=== PATIENT | male | born 1970 | race Caucasian/White ===

== ENCOUNTER 2019-01-04 19:11 | Emergency (ER) | payer BC ==
[2019-01-04 20:15] VITALS: BP 150/88
--- NOTE | 2019-01-04 20:29 | ED ---
Respiratory - HPI Summary HPI Summary: hx. of cough since august, over the last two days has had fever, denies signficant dyspnea or pleuritic pain . with this has had some body aches. hx. of prednisone use for polymyalgia rheumatica. hx. of snoring loudly never evaluated for sleep apnea - History of Current Complaint Chief Complaint: UCRespiratory Stated Complaint: COUGH,HEADACHE,FEVER Time Seen by Provider: 01/04/19 20:15 Hx Obtained From: Patient Onset/Duration: Gradual Onset, Lasting Weeks Timing: Constant Initial Severity: Mild Current Severity: Moderate Pain Intensity: 0 Character: Cough (Nonproductive) Sputum Amount: None Sputum Color: Clear Aggravating Factor(s): Nothing Alleviating Factor(s): Nothing Associated Signs and Symptoms: Negative - Risk Factors Status Asthmaticus Risk Factors: Recent Steroids Pulmonary Embolism Risk Factors: Negative Cardiac Risk Factors: Negative Pseudomonas Risk Factors: Negative - Allergy/Home Medications Allergies/Adverse Reactions: Allergies Allergy/AdvReac Type Severity Reaction Status Date / Time No Known Allergies Allergy Verified 01/04/19 20:11 Home Medications: Home Medications Omeprazole 40 mg BEDTIME 01/04/19 [History Confirmed 01/04/19] predniSONE TAB* [Deltasone 10 MG TAB*] 1 tab DAILY 01/04/19 [History Confirmed 01/04/19] PMH/Surg Hx/FS Hx/Imm Hx Previously Healthy: No - chronic prednisone use for PMR, and hx. of loud snoring Endocrine/Hematology History: Denies: Hx Diabetes Cardiovascular History: Denies: Hx Hypertension, Hx Pacemaker/ICD Respiratory History: Reports: Hx Sleep Apnea History: Denies: Hx Renal Disease Musculoskeletal History: Reports: Other Musculoskeletal History - polymyalgia rheumatica Sensory History: Denies: Hx Hearing Aid Psychiatric History: Denies: Hx Panic Disorder Infectious Disease History: No Infectious Disease History: Denies: Traveled Outside the [place] in Last 30 Days - Social History Alcohol Use: None Substance Use Type: Reports: None Smoking Status (MU): Never Smoked Tobacco Review of Systems Positive: Fever Eyes: Negative ENT: Negative Cardiovascular: Negative Positive: Cough Gastrointestinal: Negative Genitourinary: Negative Positive: Myalgia Skin: Negative All Other Systems Reviewed And Are Negative: Yes Physical Exam Triage Information Reviewed: Yes Vital Signs On Initial Exam: Initial Vitals Temp Pulse Resp BP Pulse Ox 36.8 C 99 16 150/88 99 01/04/19 20:12 01/04/19 20:12 01/04/19 20:12 01/04/19 20:12 01/04/19 20:12 Vital Signs Reviewed: Yes Appearance: Positive: Well-Appearing Skin: Positive: Warm, Dry Head/Face: Positive: Normal Head/Face Inspection Eyes: Positive: Normal ENT: Positive: Other - Malampati class 4 Respiratory/Lung Sounds: Positive: Clear to Auscultation Cardiovascular: Positive: Normal Abdomen Description: Positive: Nontender Bowel Sounds: Positive: Present Diagnostics - Vital Signs Vital Signs Temp Pulse Resp BP Pulse Ox 01/04/19 20:12 36.8 C 99 16 150/88 99 - Laboratory Lab Statement: Any lab studies that have been ordered have been reviewed, and results considered in the medical decision making process. Disposition - Diagnoses Provider Diagnoses: Pneumonia, Immunosuppression due to drug therapy Discharge - Sign-Out/Discharge Documenting (check all that apply): Patient Departure All imaging exams completed and their final reports reviewed: Yes - Discharge Plan Condition: Fair Disposition: HOME Prescriptions: Albuterol HFA INHALER* [Ventolin HFA Inhaler*] 2 puff INH Q6H PRN #1 mdi PRN Reason: Cough Levofloxacin TAB* [Levaquin TAB*] 750 mg PO DAILY 5 Days #5 tab Patient Education Materials: Pneumonitis (ED) Referrals: Richard Gilbert DO [Primary Care Provider] - - Billing Disposition and Condition Condition: FAIR Disposition: Home
[2019-01-04 20:33] LABS: Influenza A Molecular NEGATIVE (Negative); Influenza B Molecular NEGATIVE (Negative)
[2019-01-04] MEDS ORDERED: Albuterol 2.5 MG/3 ML NEB.SOL* (0.083%) INH ONE (20:50)
[2019-01-04] MEDS ORDERED: Levofloxacin TAB* 250 MG PO ONE (21:17)
--- NOTE | 2019-01-05 08:13 | UC ---
- Progress Note Progress Note: Patient Name: JUDI LEVIN Medical Record#: [id number] Ordering Physician: Richard Huntley MD Acct.#: [id number] : 1970 Age: 48 Sex: M Location: [facility] Exam Date: 01/04/192057 ADM Status: DEP ER Order Information: CHEST PA & LAT 2 VWS Accession Number: [id number] CPT: 28242 HISTORY: cough prednisone use COMPARISONS: None VIEWS: 4: Frontal dual-energy and lateral views of the chest. FINDINGS: CARDIOMEDIASTINAL SILHOUETTE: The cardiomediastinal silhouette is normal. MARYCRUZ: The marycruz are normal. PLEURA: The costophrenic angles are sharp. No pleural abnormalities are noted. LUNG PARENCHYMA: There is hyperinflation with flattening of the diaphragm and expansion of the AP diameter of the chest. ABDOMEN: The upper abdomen is clear. There is no subphrenic gas. BONES AND SOFT TISSUES: No bone or soft tissue abnormalities are noted. OTHER: None. IMPRESSION: HYPERINFLATION. NO ACTIVE CARDIOPULMONARY DISEASE. R2 Preliminary Imaging Read R2 <Electronically signed by Isidro Medina MD in OV> 01/05/19744 Dictated By: Isidro Medina MD Dictated Date/Time: 01/05/19744 Transcribed Date/Time: 01/05/19744 Copy to: CC:Richard Huntley MD; Richard Gilbert DO Imaging [facility] [address] [place] [address] ph ([phone]) ph ([phone]) ph ([phone]) This report is only to be considered final once signed by the Provider(s) as displayed in the "<Electronically Signed by >" field (s). Absence of a signature indicates the report is in a draft status and still needs to be finalized. In the event this document was created by someone other than the signing Provider, the individual initiating the document will be listed in the "Entered by:" or "Dictated by:" sommer. 1 of 2 Course/Dx - Diagnoses Provider Diagnoses: Pneumonia, Immunosuppression due to drug therapy Discharge - Sign-Out/Discharge Documenting (check all that apply): Post-Discharge Follow Up All imaging exams completed and their final reports reviewed: Yes - Discharge Plan Condition: Fair Disposition: HOME Prescriptions: Albuterol HFA INHALER* [Ventolin HFA Inhaler*] 2 puff INH Q6H PRN #1 mdi PRN Reason: Cough Levofloxacin TAB* [Levaquin TAB*] 750 mg PO DAILY 5 Days #5 tab Patient Education Materials: Pneumonitis (ED) Referrals: Richard Gilbert DO [Primary Care Provider] - - Billing Disposition and Condition Condition: FAIR Disposition: Home
== END 2019-01-04 21:36 | disposition home or self-care (01) ==
LOC: UCCORT 19:11
DX: J18.9 Pneumonia, unspecified organism (principal); T50.905A Adverse effect of unspecified drugs, medicaments and biological substances, initial encounter; D89.9 Disorder involving the immune mechanism, unspecified; M35.3 Polymyalgia rheumatica; Z79.899 Other long term (current) drug therapy; Y92.9 Unspecified place or not applicable
CPT/HCPCS: 71046; 99212; A9270-GY; G0463

== ENCOUNTER 2019-10-10 21:13 | Emergency (ER) | payer BC ==
[2019-10-10 21:21] VITALS: BP 144/85
--- NOTE | 2019-10-10 21:40 | UC ---
Throat Pain/Nasal Angelo HPI - HPI Summary HPI Summary: 49-year-old male with a sore throat since Tuesday. He states he feels feverish but when he takes his temperature he has no fever. - History of Current Complaint Chief Complaint: UCRespiratory Stated Complaint: SORE THROAT,CONGESTION Time Seen by Provider: 10/10/19 21:25 Hx Obtained From: Patient Onset/Duration: Gradual Onset Severity: Mild Pain Intensity: 8 Cough: None Associated Signs & Symptoms: Positive: Nasal Discharge - Allergies/Home Medications Allergies/Adverse Reactions: Allergies Allergy/AdvReac Type Severity Reaction Status Date / Time No Known Allergies Allergy Verified 10/10/19 21:18 PMH/Surg Hx/FS Hx/Imm Hx Previously Healthy: Yes - Surgical History Surgical History: None - Family History Known Family History: Positive: Non-Contributory - Social History Alcohol Use: None Substance Use Type: None Smoking Status (MU): Never Smoked Tobacco Review of Systems All Other Systems Reviewed And Are Negative: Yes ENT: Positive: Sore Throat, Nasal Discharge, Sinus Congestion Is Patient Immunocompromised?: No Physical Exam Triage Information Reviewed: Yes Appearance: Well-Appearing, No Pain Distress, Well-Nourished Vital Signs: Initial Vital Signs Temp 98.1 F 10/10/19 21:19 Pulse 86 10/10/19 21:19 Resp 18 10/10/19 21:19 BP 144/85 10/10/19 21:19 Pulse Ox 97 10/10/19 21:19 Vital Signs Reviewed: Yes Eyes: Positive: Conjunctiva Clear ENT: Positive: Pharynx normal, Nasal drainage - Clear nasal coryza., TMs normal , Uvula midline Neck exam: Normal Neck: Positive: Supple, Nontender, No Lymphadenopathy Respiratory: Positive: Lungs clear, Normal breath sounds, No respiratory distress, No accessory muscle use Cardiovascular: Positive: RRR, No Murmur, Pulses Normal, Brisk Capillary Refill Musculoskeletal Exam: Normal Neurological Exam: Normal Psychological Exam: Normal Skin Exam: Normal Throat Pain/Nasal Course/Dx - Course Course Of Treatment: Rapid strep test is negative - Differential Dx/Diagnosis Provider Diagnosis: URI (upper respiratory infection), Pharyngitis Discharge ED - Sign-Out/Discharge Documenting (check all that apply): Patient Departure All imaging exams completed and their final reports reviewed: No Studies - Discharge Plan Condition: Good Disposition: HOME Patient Education Materials: Pharyngitis (ED) Referrals: Richard Gilbert DO [Primary Care Provider] - Additional Instructions: Increase fluids, warm saltwater gargles, throat lozenges. Take Tylenol every 4 hours or Motrin every 8 hours for fever or aches and pains. Follow-up with your primary care provider on Tuesday if no improvement. - Billing Disposition and Condition Condition: GOOD Disposition: Home - Attestation Statements Provider Attestation: I was available for consult. This patient was seen by the SERGIO. The patient was not presented to, seen by, or examined by me. -Uriah
== END 2019-10-10 21:50 | disposition home or self-care (01) ==
LOC: UCCORT 21:13
DX: J02.9 Acute pharyngitis, unspecified (principal); J06.9 Acute upper respiratory infection, unspecified
CPT/HCPCS: 87651; 99211; G0463